=== PATIENT | male | born 1960 | race Caucasian/White ===

== ENCOUNTER → 2017-07-24 11:06 | Outpatient (CLI) | payer BC, SELFPAY ==
--- NOTE | 2017-07-24 | XR_ITS ---
XR lumbar spine min 4V COMPARISON: None HISTORY: Low back pain TECHNIQUE: AP lateral and oblique views and spot view lumbosacral junction FINDINGS: There is normal lordotic curvature of the lumbar spine. However there is very minor diffuse dextroscoliotic curvature of the lumbar spine. All lumbar vertebrae appear intact. There is minor disc space narrowing at L4-5 level. There is no pars defect. The SI joints are normal. IMPRESSION: Minor degenerative disease L4-5
== END ==
PROVIDERS: PCP Nurse Practitioner Family; Visit Provider Nurse Practitioner Family
DX: M54.41 Lumbago with sciatica, right side (principal)
CPT/HCPCS: 72110

== ENCOUNTER → 2017-07-26 11:09 | Outpatient (CLI) | payer BC, SELFPAY ==
--- NOTE | 2017-07-26 11:17 | XR_ITS ---
XR hip RT 2-3V w/pelvis COMPARISON: None HISTORY: Right hip pain TECHNIQUE: AP pelvis, cone-down AP and frog-leg views right hip FINDINGS: The iliac bones and pubic bones appear intact. The SI joints and symphysis pubis per normal. Both hips are normally articulated. There Is no significant degenerative change in either hip. There is normal range of motion right hip on the frog-leg view. The soft tissues about the hips are normal. IMPRESSION: Negative AP pelvis and right hip, left hip grossly negative as well
== END ==
PROVIDERS: PCP Nurse Practitioner Family; Visit Provider Nurse Practitioner Family
DX: M25.551 Pain in right hip (principal)
CPT/HCPCS: 73502

== ENCOUNTER → 2017-08-03 15:55 | Outpatient (CLI) | payer BC, SELFPAY ==
--- NOTE | 2017-08-03 16:18 | MR_ITS ---
MR lumbar spine wo con, MR 3-d myelogram/MRCP HISTORY: PT states low back pain since Mar. RT leg pain. No known. ITS.REASON: ACUTE RIGHT-SIDED LOW BACK PAIN W/SCIATICA ORDERING PHYSICIAN: Tiana Davila PATIENT AGE: 56 years COMPARISON: X-RAY 07/24/17 TECHNIQUE: Standard multiplanar multiecho sequences are performed without contrast. 3-D MIP and myelographic images are also rendered and reviewed FINDINGS: There is normal alignment. Spinal cord ends at the L1 level. L1-L2, L2-L3, and L3-L4 have an unremarkable appearance.. The bulging disc is very slightly eccentric toward the right. L4-L5: There is mild concentric bulging disc along with mild facet and ligamentum flavum hypertrophy with mild bilateral foraminal narrowing. L5-S1: Mild degenerative disc disease with mild bulging disc along with facet and ligamentum flavum hypertrophy with moderate bilateral foraminal narrowing slightly greater on the right. No canal stenosis or disc herniation evident. IMPRESSION: 1. Mild degenerative disc disease with mild bulging disc at L4-L5 and L5-S1 along with facet and ligamentum flavum hypertrophy. There is mild bilateral foraminal narrowing at L4-L5 and moderate foraminal narrowing at L5-S1 slightly greater on the right 2. No canal stenosis or disc herniation
== END ==
PROVIDERS: Family Provider Family Medicine; PCP Nurse Practitioner Family; Visit Provider Nurse Practitioner Family
DX: M54.41 Lumbago with sciatica, right side (principal)
CPT/HCPCS: 72148; 76376

== ENCOUNTER 2017-12-09 16:00 | Outpatient (RCR) | payer BC, SELFPAY | END 2017-12-09 16:01 | disposition home or self-care (01) | LOC: PT 16:00 | PROVIDERS: Family Provider Family Medicine; PCP Nurse Practitioner Family; Visit Provider Orthopaedic Surgery | DX: M54.31 Sciatica, right side (principal) | CPT/HCPCS: 97010; 97012; 97014; 97110; 97163; G0283 ==

== ENCOUNTER → 2018-03-24 13:34 | Outpatient (CLI) | payer BC, SELFPAY ==
--- NOTE | 2018-03-24 13:37 | XR_ITS ---
XR shoulder RT min 2V Ordering Physician: Vivek Ram MD Patient Age: 57 years: Male HISTORY: ITS.REASON: ROTATOR CUFF SYNDROME TECHNIQUE: 3 views right shoulder COMPARISON :March 26, 2015 chest film FINDINGS Right shoulder intact with no fracture nor dislocation. Glenohumeral joint is intact.. Scant unremarkable bones well mineralized. Upper right ribs and right lung apex satisfactory. AC joint:. Mild degenerative changes. IMPRESSION: Right shoulder intact with only minimal joint intact Only note . Mild degenerative changes AC joint
== END ==
PROVIDERS: PCP Family Medicine; Visit Provider Family Medicine
DX: M75.101 Unspecified rotator cuff tear or rupture of right shoulder, not specified as traumatic (principal)
CPT/HCPCS: 73030

== ENCOUNTER → 2019-01-03 15:51 | Outpatient (POV) | payer BC, SELFPAY | PROVIDERS: Visit Provider Dermatology | DX: Z00.00 Encounter for general adult medical examination without abnormal findings (principal) ==

== ENCOUNTER → 2019-12-05 15:45 | Outpatient (POV) | payer BC, SELFPAY | PROVIDERS: Visit Provider Dermatology | DX: Z00.00 Encounter for general adult medical examination without abnormal findings (principal) ==

== ENCOUNTER → 2022-12-11 15:30 | Outpatient (CLI) | payer BC, SELFPAY | PROVIDERS: PCP Internal Medicine; Visit Provider Internal Medicine | DX: R31.9 Hematuria, unspecified (principal) | CPT/HCPCS: 87086 ==

== ENCOUNTER → 2023-03-18 15:30 | Outpatient (CLI) | payer BC, SELFPAY ==
[2023-03-18 15:18] LABS: Microscopic, Urine URINE MICROSCOPIC (MICROSCOPIC)
[2023-03-18 15:34] LABS: Basophils % 0.3 % (0.1-2.0); Eosinophils # 0.2 K/mm3 (0.0-0.4); Eosinophils % 1.6 % (0.1-12.0); Hematocrit 49.4 % (42.0-52.0); Hemoglobin 16.5 g/dL (14.1-18.0); Lymphocytes # 1.3 K/mm3 (0.7-4.5); Lymphocytes % 12.9 % (10-50); Mean Corpuscular HGB Conc 33.4 g/dL (31.8-35.4); Mean Corpuscular Hemoglobin 29.2 pg (27.0-31.2); Mean Corpuscular Volume 87.4 fl (80-94); Monocytes # 0.7 K/mm3 (0.1-1.0); Monocytes % 6.7 % (1.7-9.3); Neutrophils % 78.4 % (37.0-80.0); Platelet Count 181 K/mm3 (142-424); Red Blood Count 5.65 M/mm3 (4.60-6.20); Red Cell Distribution Width 13.8 % (11.5-17.5); White Blood Count 10.3 K/mm3 (4.8-10.8)
[2023-03-18 16:14] LABS: Appearance,Urine CLEAR (Clear); Bilirubin,Urine Negative (Negative); Blood, Urine Negative (Negative); Color,Urine YELLOW (Yellow); Glucose,Urine (UA) Negative (Negative); Ketones,Urine Negative (Negative); Leukocyte Esterase,Urine Negative (Negative); Nitrate,Urine Negative (Negative); Protein,Urine Negative (Negative); Specific Gravity, Urine 1.015 (1.005-1.030); Urobilinogen,Urine 0.2 EU/dl (0.2)
[2023-03-18 16:34] LABS: Alanine Aminotransferase 24 U/L (12-78); Albumin/Globulin Ratio 1.5 (1.1-1.8); Alkaline Phosphatase 56 U/L (38-126); Aspartate Amino Transferase 26 U/L (17-59); Bilirubin,Total 0.7 mg/dl (0.2-1.3); Blood Urea Nitrogen 14 mg/dl (9-20); Calcium 8.6 mg/dl (8.4-10.2); Carbon Dioxide 27 mmol/L (22.0-30.0); Chloride 102 mmol/L (98-107); Estimated Glomerular Filt Rate 97 ml/min (>60); GFR (African American) 118 ML/MIN (>60); Globulin 2.7 g/dL (1.3-3.2); Glucose 89 mg/dl (74-100); Sodium 134 mmol/L (136-145); Total Protein,Serum 6.7 g/dl (6.3-8.2)
[2023-03-18 16:52] LABS: Bacteria,Urine Trace /lpf; WBC,Urine Occasional #/hpf (0-3)
[2023-03-18 17:04] LABS: Prostate Specific Ag Screen 0.2 ng/ml (0.0-4.0)
== END ==
LOC: LAB.DROPOF 15:31
PROVIDERS: PCP Internal Medicine; Visit Provider Internal Medicine
DX: N41.9 Inflammatory disease of prostate, unspecified (principal); Z79.899 Other long term (current) drug therapy; Z12.5 Encounter for screening for malignant neoplasm of prostate
CPT/HCPCS: 80053; 81001; 85025; 87086; G0103

== ENCOUNTER 2023-07-28 11:28 | Outpatient (CLI) | payer BC, SELFPAY | END 2023-07-28 23:59 | disposition home or self-care (01) | LOC: LAB.DROPOF 07-29 11:29 | PROVIDERS: PCP Nurse Practitioner Family; Visit Provider Nurse Practitioner Family | DX: J02.9 Acute pharyngitis, unspecified (principal); R05.9 Cough, unspecified; R09.89 Other specified symptoms and signs involving the circulatory and respiratory systems | CPT/HCPCS: 87070 ==

== ENCOUNTER 2024-02-18 12:58 | Outpatient (CLI) | payer MEDICARE, SELFPAY ==
[2024-02-18 12:35] LABS: Microscopic, Urine URINE MICROSCOPIC (MICROSCOPIC)
[2024-02-18 12:56] LABS: Basophils % 0.8 % (0.1-2.0); Eosinophils # 0.2 K/mm3 (0.0-0.4); Hematocrit 48.6 % (42.0-52.0); Hemoglobin 16.4 g/dL (14.1-18.0); Lymphocytes # 1.2 K/mm3 (0.7-4.5); Lymphocytes % 24.6 % (10-50); Mean Corpuscular HGB Conc 33.7 g/dL (31.8-35.4); Mean Corpuscular Hemoglobin 29.1 pg (27.0-31.2); Mean Corpuscular Volume 86.3 fl (80-94); Mean Platelet Volume 7.2 fl (7.4-10.4); Monocytes # 0.4 K/mm3 (0.1-1.0); Monocytes % 8.2 % (1.7-9.3); Neutrophils # 3.2 K/mm3 (1.8-7.8); Neutrophils % 63.4 % (37.0-80.0); Platelet Count 149 K/mm3 (142-424); Red Blood Count 5.63 M/mm3 (4.60-6.20); Red Cell Distribution Width 13.7 % (11.5-17.5)
[2024-02-18 13:27] LABS: Alanine Aminotransferase 23 U/L (12-78); Albumin Level 4.2 g/dl (3.5-5.0); Albumin/Globulin Ratio 1.6 (1.1-1.8); Alkaline Phosphatase 52 U/L (38-126); Anion Gap 9.3 mEq/L (5-15); Aspartate Amino Transferase 32 U/L (17-59); Bilirubin,Total 0.7 mg/dl (0.2-1.3); Blood Urea Nitrogen 18 mg/dl (9-20); Calcium 9.4 mg/dl (8.4-10.2); Carbon Dioxide 29 mmol/L (22.0-30.0); Chloride 106 mmol/L (98-107); Chol/HDL Ratio 3.4 (1-3.5); Cholesterol 138 mg/dl (140-200); Estimated Glomerular Filt Rate 113 ml/min (>60); GFR (African American) 137 ML/MIN (>60); Globulin 2.6 g/dL (1.3-3.2); Glucose 69 mg/dl (74-100); HDL Cholesterol 41 mg/dl (40-60); Potassium 4.3 mmoL/L (3.5-5.1); Sodium 140 mmol/L (136-145); Total Protein,Serum 6.8 g/dl (6.3-8.2); Triglycerides 187 mg/dl (30-150); VLDL Cholesterol 37 mg/dL (0-40)
[2024-02-18 13:37] LABS: Direct LDL Cholesterol 71.24 mg/dL (100-129)
[2024-02-18 13:57] LABS: Thyroid Stimulating Hormone 2.21 uIU/mL (0.465-4.68)
[2024-02-18 14:23] LABS: Appearance,Urine CLEAR (Clear); Bilirubin,Urine Negative (Negative); Blood, Urine Negative (Negative); Color,Urine YELLOW (Yellow); Glucose,Urine (UA) Negative (Negative); Ketones,Urine Negative (Negative); Leukocyte Esterase,Urine Negative (Negative); Nitrate,Urine Negative (Negative); Protein,Urine Negative (Negative); Specific Gravity, Urine <= 1.005 (1.005-1.030); Urobilinogen,Urine 0.2 EU/dl (0.2)
[2024-02-18 15:19] LABS: RBC,Urine Occasional #/hpf (0-3); Squamous Epithelial Cell,Urine Occasional #/hpf (0-5); WBC,Urine Occasional #/hpf (0-3)
[2024-02-18 16:21] LABS: HIV (1&2) Antibody Rapid NONREACTIVE (NONREACTIVE)
[2024-02-19 07:14] LABS: HCV Ab Non Reactive (Non Reactive)
== END 2024-02-18 23:59 | disposition home or self-care (01) ==
LOC: LAB.DROPOF 12:58
PROVIDERS: PCP Nurse Practitioner Family; Visit Provider Nurse Practitioner Family
DX: R30.0 Dysuria (principal); J02.9 Acute pharyngitis, unspecified; N41.9 Inflammatory disease of prostate, unspecified; Z11.59 Encounter for screening for other viral diseases; Z11.4 Encounter for screening for human immunodeficiency virus [HIV]; R35.0 Frequency of micturition; Z79.899 Other long term (current) drug therapy
CPT/HCPCS: 80053; 80061; 81001; 84443; 85025; 86803; 87086; 87389

== ENCOUNTER 2024-03-13 14:10 | Outpatient (CLI) | payer MEDICARE, SELFPAY ==
[2024-03-13 14:31] LABS: Chloride 106 mmol/L (98-107); Sodium 135 mmol/L (136-145)
[2024-03-13 14:34] LABS: Alanine Aminotransferase 28 U/L (12-78); Albumin/Globulin Ratio 1.7 (1.1-1.8); Alkaline Phosphatase 61 U/L (38-126); Aspartate Amino Transferase 34 U/L (17-59); Bilirubin,Total 0.5 mg/dl (0.2-1.3); Blood Urea Nitrogen 14 mg/dl (9-20); Calcium 9.2 mg/dl (8.4-10.2); Carbon Dioxide 28 mmol/L (22.0-30.0); Estimated Glomerular Filt Rate 113 ml/min (>60); GFR (African American) 137 ML/MIN (>60); Globulin 2.4 g/dL (1.3-3.2); Glucose 70 mg/dl (74-100); Magnesium 1.9 mg/dl (1.6-2.3); Total Protein,Serum 6.4 g/dl (6.3-8.2)
== END 2024-03-13 23:59 | disposition home or self-care (01) ==
LOC: LAB.DROPOF 14:10
PROVIDERS: PCP Nurse Practitioner Family; Visit Provider Nurse Practitioner Family
DX: I95.9 Hypotension, unspecified (principal)
CPT/HCPCS: 80053; 83735

== ENCOUNTER 2024-04-07 14:35 | Outpatient (CLI) | payer MEDICARE, SELFPAY ==
[2024-04-07 15:52] LABS: Prostate Specific Ag Screen 0.3 ng/ml (0.0-4.0)
== END 2024-04-07 23:59 | disposition home or self-care (01) ==
LOC: LAB.DROPOF 14:35
PROVIDERS: PCP Nurse Practitioner Family; Visit Provider Nurse Practitioner Family
DX: Z12.5 Encounter for screening for malignant neoplasm of prostate (principal)
CPT/HCPCS: G0103

== ENCOUNTER 2024-04-18 13:31 | Outpatient (CLI) | payer MEDICARE, SELFPAY ==
[2024-04-18 13:00] LABS: Coronavirus 19, PCR Not Detected (NotDetected); Human Rhinovirus Not Detected (NotDetected); Influenza A, PCR Not Detected (NotDetected); Influenza B, PCR Not Detected (NotDetected); Respiratory Syncytial Virus Not Detected (NotDetected)
== END 2024-04-18 23:59 | disposition home or self-care (01) ==
LOC: LAB.DROPOF 13:31
PROVIDERS: PCP Nurse Practitioner Family; Visit Provider Nurse Practitioner Family
DX: R06.02 Shortness of breath (principal); J20.9 Acute bronchitis, unspecified; R68.89 Other general symptoms and signs
CPT/HCPCS: 87631

== ENCOUNTER 2024-04-24 16:02 | Outpatient (CLI) | payer MEDICARE, SELFPAY | END 2024-04-24 23:59 | disposition home or self-care (01) | LOC: RT 16:03 | PROVIDERS: PCP Nurse Practitioner Family; Visit Provider Internal Medicine | DX: R55 Syncope and collapse (principal); Z82.49 Family history of ischemic heart disease and other diseases of the circulatory system; R94.31 Abnormal electrocardiogram [ECG] [EKG]; I48.91 Unspecified atrial fibrillation | CPT/HCPCS: 93270 ==

== ENCOUNTER 2024-05-10 07:16 | Outpatient (CLI) | payer MEDICARE, SELFPAY ==
--- NOTE | 2024-05-10 | CA_ITS ---
APPROVED REPORT Exam: Exercise Treadmill Technologist: Berta Saucedo Ht: 5 ft 11 in Wt: 192 lbs BSA: 2.07 m2 HR: 76 bpm BP: 107/74 mmHg Stress Test Details Test: Exercise stress testing was performed using a Glenroy protocol. HR Resting HR: 76 bpm Max Heart Rate (APMHR): 155 bpm Max HR Achieved: 156 bpm Target HR (85% APMHR): 132 bpm % of APMHR: 101 Recovery HR: 108 bpm HR response to stress: Normal HR response to stress BP Resting BP: 107.0/74.0 mmHg Max BP: 138.0/82.0 mmHg Recovery BP: 116.0/84.0 mmHg BP response to stress: Normal blood pressure response to stress. ECG Resting ECG: Atrial fibrillation, PVCs Stress EC.[address] depression Clinical Exercise duration: 4:25 min Exercise capacity: 7.1 METs Stress ECG Conclusion Symptoms: None Arrhythmias/Ectopy: Occasional PVCs ST-T Changes: 0.[address] depression Conclusion: Average exercise capacity. No evidence of ischemia at peak stress on ECG. Myoview images are reported separately. Electronically signed by : Corrine Wills MD 05/14/2024 00:19:29
--- NOTE | 2024-05-10 07:17 | NM_ITS ---
APPROVED REPORT Exam: Nuclear Stress Test Indication: fm hx, abn ekg Patient Location: Outpatient Stress Tech: Berta Saucedo MD Tech:Fartun Rice SUE RT (R)(N)(M) Ht: 5 ft 10 in Wt: 195 lbs HR: 90 bpm BP: 107/74 mmHg BSA: 2.07 m2 TID: 1.01 BMI: 27.9 History: fm hx, abn ekg Procedure: Patient exercised on Glenroy protocol 4:25 minutes and sec, resting heart rate 90 bpm, resting blood pressure 107/74 mmHg, with exercise maximum heart rate achived was 158 bpm which is 103 % of the maximum predicted heart rate and blood pressure was 138/82 mmHg. Test was stopped due to fatigue. Patient denied any complaint of chest pain. Patient has average exercise capacity, achieved 7.1 METs of workload on treadmill, the blood pressure response to exercise was normal. Cardiac Stress and Resting SPECT Images: Cardiac Stress and Resting SPECT images were obtained using technetium 99m Myoview 31.6 mCi stress and 10.30 mCi at rest. Resting and stress imaging in supine and prone positions demonstrate a large sized, moderate, predominantly fixed perfusion defect in the inferior, inferolateral, and lateral LV hensley. Gated imaging demonstrates mildly reduced LV systolic function. There is moderate hypokinesis of the inferior and basal lateral LV hensley. LVEF is calculated at 44%. Conclusion: Large sized, moderate, predominantly fixed perfusion defect in the inferior, inferolateral, and lateral LV hensley. Findings are suggestive of partial reversible ischemia. Gated imaging demonstrates mildly reduced LV systolic function. There is moderate hypokinesis of the inferior and basal lateral LV hensley. LVEF is calculated at 44%. Electronically signed by : Corrine Wills MD 05/14/2024 00:11:51
[2024-05-10] MEDS: SODIUM CHLORIDE 0.9% 10ML SYR (RAD ONLY) 10 ML IV ×2 (07:25→09:00)
--- NOTE | 2024-05-10 07:48 | CA_ITS ---
APPROVED REPORT EXAM: Comprehensive 2D, Doppler, and color-flow Echocardiogram Biomedical Engineering Internship: Yael Little RVT Ht: 5 ft 10 in Wt: 182lbs BSA: 2.01 BP: 129/87 mmHg Indications: A-FIB,EX SMOKER 2D Dimensions IVSd 1.08 cm M: 0.6-1.2 LVEF (Visual) 63.30 % PWd 1.29 cm M: 0.6 - 1.2 LA Volume 26.10 mL LVDd 3.47 cm M: 4.2 - 5.9 LA Volume Index 12.99 mL/m2 (M/F) 16-34 LVDs 2.31 cm M: 2.5 - 4.0 M-Mode Dimensions LA Diam 4.62 cm (1.9-4.0) TAPSE 1.61 (<1.7) LV Diastology E Decel Time 200 (160-240 msec) E/A Ratio 4.1 Aortic Valve NANO Index 1.24 cm2/m2 AoV Peak Titi. 124.0 (50-130 cm/s) AO Peak GR. 6.20 mmHg AO Mean GR. 3.90 (<5 mmHg) AO VTI 25.8 (18-25 cm) NANO (VTI) 2.54 (2.5-4.5 cm2) Mitral Valve MV E Max Titi. 107.0 (40-130 cm/s) MV A Velocity 26.0 (40-130 cm/s) E/A Ratio 4.12 MV PHT 59.0 ms Pulmonary Valve PV Peak Velocity 58.0 (50-150 cm/s) Tricuspid Valve TR P. Velocity 274.00 cm/s RAP Estimate 10.00 mmHg RVSP 40.00 mmHg Left Ventricle The left ventricle is normal size. The left ventricular systolic function is normal. The left ventricular ejection fraction is within the normal range. There is increased LV wall thickness. There is normal LV segmental wall motion. Diastolic function is indeterminate. LVEF is 55%. Right Ventricle Right ventricle is mildly dilated. The right ventricular systolic function is normal. Atria Left atrium is mildly dilated. Right atrium is mildly dilated. There is no Doppler evidence of interatrial shunt. Aortic Valve The aortic valve is mildly thickened. There is no aortic valvular stenosis. No aortic regurgitation is present. Mitral Valve The mitral valve is normal in structure. No evidence of mitral valve stenosis. Trace mitral regurgitation. Tricuspid Valve Tricuspid valve is grossly normal in structure and function. Trace tricuspid regurgitation. There is insufficient TR jet to estimate RVSP. Pulmonic Valve The pulmonary valve is normal in structure. Trace pulmonic regurgitation. Great Vessels The aortic root is normal in size. IVC is normal in size and collapses >50% with inspiration. Pericardium There is no pericardial effusion. Other Information Study Quality: Fair Conclusion Normal biventricular systolic function. Mild RV dilation. Mild biatrial dilation. No significant valvular stenosis or regurgitation. Electronically signed by : Corrine Wills MD 05/15/2024 01:02:00
[2024-05-10] MEDS: ISOTOPE MYOVIEW (PER STUDY) 1 DOSE IV (09:54)
== END 2024-05-10 23:59 | disposition home or self-care (01) ==
LOC: RAD 07:17
PROVIDERS: PCP Nurse Practitioner Family; Visit Provider Internal Medicine
DX: R94.31 Abnormal electrocardiogram [ECG] [EKG] (principal); R55 Syncope and collapse; Z82.49 Family history of ischemic heart disease and other diseases of the circulatory system; I48.91 Unspecified atrial fibrillation
CPT/HCPCS: 78452; 93017; 93018; 93306; A9502

== ENCOUNTER 2024-08-08 08:45 | Day surgery (SDC) | payer MEDICARE, SELFPAY ==
[2024-08-08] VITALS (12 sets, daily range): BP systolic 93–144; BP diastolic 47–109; PULSE 38–86; RESP 16–20; TEMP 37.1; O2SAT 90–99; BMI 28.8
--- NOTE | 2024-08-08 07:00 | IR_ITS ---
APPROVED REPORT Patient Location: Outpatient PROCEDURES Left heart catheterization Left ventriculogram Selective coronary angiogram INDICATION Abnormal Myoview Informed consent was obtained prior to the procedure. COMPLICATIONS NONE Estimated Blood Loss: LESS THAN 10 ML TECHNIQUE One percent lidocaine used to anesthetize the right anterior aspect of the wrist. The right radial artery was accessed via the Seldinger technique. A 6 Slovenian sheath was placed in the right radial artery. 2.5 mg of Verapamil, 800 mcg of nitroglycerin, 1mg Lidocaine and 5000 U Heparin were given through the arterial sheath. The JL3 catheter was also used to perform left heart catheterization, left ventriculogram and selective coronary angiogram. At the end of the procedure the sheath was removed good hemostasis was achieved using Traclet band, patient was transferred to the postop holding area in stable condition. ANGIOGRAPHIC RESULTS The left main artery Normal The left anterior descending artery Normal The circumflex artery Normal The right coronary artery Normal The JORDAN ventriculogram reveals Reduced 45% The left ventricular end-diastolic pressure Elevated at 25 mmHg IMPRESSION Normal coronary arteries Reduced ejection fraction with elevated LVEDP PLAN 1. GDMT 2. Consider cardiac MRI Electronically signed by : Mitch Velasco MD 08/08/2024 12:49:45
[2024-08-08 09:57] LABS: Basophils % 0.8 % (0.1-2.0); Eosinophils # 0.1 Kmm3 (0.0-0.4); Eosinophils % 2.8 % (0.1-12.0); Hematocrit 49.9 % (42.0-52.0); Hemoglobin 16.3 g/dL (14.1-18.0); Immature Granulocytes # 0.01 10^3uL; Immature Granulocytes % 0.2 %; Lymphocytes # 1.3 K/mm3 (0.7-4.5); Lymphocytes % 25.2 % (10-50); Mean Corpuscular HGB Conc 32.7 g/dL (31.8-35.4); Mean Corpuscular Hemoglobin 28.3 pg (27.0-31.2); Mean Corpuscular Volume 86.6 fl (80-94); Mean Platelet Volume 9.3 fl (7.4-10.4); Monocytes # 0.4 K/mm3 (0.1-1.0); Monocytes % 7.8 % (1.7-9.3); Neutrophils # 3.2 K/mm3 (1.8-7.8); Neutrophils % 63.2 % (37.0-80.0); Nucleated Red Blood Cells # 0 10^3/uL; Nucleated Red Blood Cells % 0 %; Platelet Count 156 K/mm3 (142-424); Red Blood Count 5.76 M/mm3 (4.60-6.20); Red Cell Distribution Width-SD 40.7 fL
[2024-08-08 10:11] LABS: Chloride 108 mmol/L (98-107); Potassium 4.2 mmoL/L (3.5-5.1); Sodium 139 mmol/L (136-145)
[2024-08-08 10:14] LABS: Anion Gap 9.2 mEq/L (5-15); Blood Urea Nitrogen 13 mg/dl (9-20); Carbon Dioxide 26 mmol/L (22.0-30.0); Creatinine Clearance Estimated 95 mL/min (50-200); Estimated Glomerular Filt Rate 113 ml/min (>60); GFR (African American) 137 ML/MIN (>60)
[2024-08-08 10:15] LABS: Calcium 9.1 mg/dl (8.4-10.2); Glucose 108 mg/dl (74-100)
[2024-08-08] MEDS: VERAPAMIL 2.5MG/ML 2ML VIAL 2.5 MG IV (12:23)
[2024-08-08] MEDS: HEPARIN 1,000 UNITS/ML 10ML VIAL (CATH LAB) 5000 UNIT IV (12:23)
[2024-08-08] MEDS: diphenhydrAMINE 50MG/ML VIAL 50 MG IV (12:24)
[2024-08-08] MEDS: HEPARIN 1,000 UNITS/500ML NS (CATH LAB) 3000 UNIT IV (12:24)
[2024-08-08] MEDS: NITROGLYCERIN 800MCG/8ML SYR (CATH LAB) 800 MCG IA (12:24)
[2024-08-08] MEDS: LIDOCAINE 1% 10ML MDV 10 ML IJ (12:24)
[2024-08-08] MEDS: 0.9 % SODIUM CHLORIDE 500 ML 25 ML IV (12:24)
[2024-08-08] MEDS: MIDAZOLAM HCL 1MG/ML 5ML VIAL 1 MG IV (12:47)
[2024-08-08] MEDS: FENTANYL 100MCG/2ML VIAL 50 MCG IV (12:47)
[2024-08-08] MEDS: IOPAMIDOL-370 (76%);100ML BOTTLE 50 ML IV (14:33)
== END 2024-08-08 15:24 | disposition home or self-care (01) ==
LOC: CATHLAB 08:46
PROVIDERS: PCP Nurse Practitioner Family; Visit Provider Internal Medicine
PROC: 4A023N7 Measurement of Cardiac Sampling and Pressure, Left Heart, Percutaneous Approach (ICD-10-PCS; CPT 93452; principal; 2024-08-08 09:30)
DX: I48.0 Paroxysmal atrial fibrillation (principal); R93.1 Abnormal findings on diagnostic imaging of heart and coronary circulation; R94.39 Abnormal result of other cardiovascular function study; Z87.891 Personal history of nicotine dependence; Z88.8 Allergy status to other drugs, medicaments and biological substances; Z79.899 Other long term (current) drug therapy; Z82.49 Family history of ischemic heart disease and other diseases of the circulatory system
CPT/HCPCS: 80048; 85025; 93458; 99152; C1725; C1769; J1200; J1644; J3010; Q9967

== ENCOUNTER 2024-08-25 10:01 | Outpatient (CLI) | payer MEDICARE, SELFPAY | END 2024-08-25 23:59 | disposition home or self-care (01) | LOC: LAB.DROPOF 08-28 10:01 | PROVIDERS: PCP Nurse Practitioner Family; Visit Provider Nurse Practitioner Family | DX: N39.0 Urinary tract infection, site not specified (principal) | CPT/HCPCS: 87086 ==

== ENCOUNTER 2025-02-15 09:44 | Outpatient (CLI) | payer MEDICARE, SELFPAY ==
--- NOTE | 2025-02-15 09:47 | XR_ITS ---
FINAL REPORT TECHNIQUE: Chest PA & Lateral CLINICAL HISTORY: Nonspecific cough COMPARISON: None FINDINGS: 2 views of the chest were performed. There are calcified left hilar lymph nodes. The heart size is normal. The mediastinum is within normal limits. There is no acute cardiopulmonary process. There are no pleural effusions. There is no pneumothorax. IMPRESSION: No acute cardiopulmonary process. Reviewed, Interpreted and Dictated by Milad Snowden MD Transcribed by Lanie Knapp Authenticated and [facility]
[2025-02-15 10:32] LABS: Hematocrit 46.5 % (42.0-52.0); Hemoglobin 14.9 g/dL (14.1-18.0); Immature Granulocytes % 0.4 %; Mean Corpuscular HGB Conc 32.0 g/dL (31.8-35.4); Mean Corpuscular Hemoglobin 28.1 pg (27.0-31.2); Mean Corpuscular Volume 87.7 fl (80-94); Nucleated Red Blood Cells % 0 %; Platelet Count 156 K/mm3 (142-424); Red Blood Count 5.30 M/mm3 (4.60-6.20); Red Cell Distribution Width-SD 42.6 fL; White Blood Count 4.9 K/mm3 (4.8-10.8)
[2025-02-15 10:54] LABS: Alanine Aminotransferase 21 U/L (12-78); Albumin Level 4.1 g/dl (3.5-5.0); Alkaline Phosphatase 62 U/L (38-126); Anion Gap 8.0 mEq/L (5-15); Aspartate Amino Transferase 29 U/L (17-59); Bilirubin,Direct 0.0 mg/dl (0.0-0.4); Bilirubin,Indirect 0.6 mg/dL (0.0-0.9); Bilirubin,Total 0.6 mg/dl (0.2-1.3); Bilirubin,Unconjugated 0.5 mg/dL (0.0-1.1); Blood Urea Nitrogen 15 mg/dl (9-20); Calcium 9.4 mg/dl (8.4-10.2); Carbon Dioxide 28 mmol/L (22.0-30.0); Chloride 105 mmol/L (98-107); Cholesterol 143 mg/dl (140-200); Creatinine,Serum 0.70 mg/dl (0.66-1.25); Estimated Glomerular Filt Rate 113 ml/min (>60); GFR (African American) 137 ML/MIN (>60); Glucose 84 mg/dl (74-100); HDL Cholesterol 41 mg/dl (40-60); Magnesium 1.9 mg/dl (1.6-2.3); Potassium 4.0 mmoL/L (3.5-5.1); Sodium 137 mmol/L (136-145); Total Protein,Serum 6.7 g/dl (6.3-8.2); Triglycerides 271 mg/dl (30-150)
[2025-02-15 11:09] LABS: Free T4 (Free Thyroxine) 0.78 ng/dl (0.78-2.19)
[2025-02-15 11:23] LABS: Thyroid Stimulating Hormone 1.76 uIU/mL (0.465-4.68)
== END 2025-02-15 23:59 | disposition home or self-care (01) ==
LOC: LAB 09:45
PROVIDERS: PCP Nurse Practitioner Family; Visit Provider Physician Assistant
DX: R05.1 Acute cough (principal); R55 Syncope and collapse; I48.0 Paroxysmal atrial fibrillation; Z13.6 Encounter for screening for cardiovascular disorders; E78.5 Hyperlipidemia, unspecified
CPT/HCPCS: 36415; 71046; 80048; 80061; 80076; 83735; 84439; 84443; 85025; 93270

== ENCOUNTER 2025-02-20 07:50 | Outpatient (CLI) | payer MEDICARE, SELFPAY ==
--- OUTSIDE RECORDS SUMMARY | 2025-02-20 07:53 | XMS_ITS ---
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 Name Role Phone Giovanni Estephania Unavailable [phone] MARINA GAINES Primary Care Provider [phone] Law UA, Adan Guillaume Unavailable [phone] Problems Includes: Active, inactive, and resolved Problems All Visits Onset Date Resolved Date Provider Condition S tatus Lower Back Pain 11/11/2017 Adan Foy MD Act martine Last Documented On 8 10:43AM ; [facility], [facility] Plan of Treatment Instructions to patient Lose weight Last Documented On 4 8:43AM ; [facility], [facility] Lose weight Last Documented On 3 1:39PM ; [facility] Lose weight Last Documented On 3 10:04AM ; [facility], [facility] Instructions for patient Pat ient to see PCP for BP Last Documented On 8 10:32AM ; [facility] Instructions for patient Pat ient to see PCP for BP Last Documented On 8 10:45AM ; [facility], [facility] Assessments Includes: Assessments for all patient encounters Findings Encounter Date Overweight Follow Up with Aditya Hinds 04/02/2023 Last Documented On 4 8:50AM ; [facility] Overweight Follow Up with Aditya Hinds 02/09/2023 Last Documented On 3 1:34PM ; [facility] Overweight Physician Specified with Stiven Will MD 10/14/2022 Last Documented On 3 6:14PM ; [facility], [facility] Instructions Includes: Instructions for all patient encounters Instructions to patient Lose weight Last Documented On 4 8:43AM ; [facility], [facility] Lose weight Last Documented On 3 1:39PM ; [facility], [facility] Lose weight Last Documented On 3 10:04AM ; [facility], [facility] Instructions for patient Pat ient to see PCP for BP Last Documented On 8 10:32AM ; [facility], [facility] Instructions for patient Pat ient to see PCP for BP Last Documented On 8 10:45AM ; [facility], [facility] Medical Equipment - Implanted Devices Includes: Current and historical Devices No Medical Equipment Recorded Medications Includes: Current and historical Medications Current Medications (continue as prescribed) Doxazosin Mesylate 8 MG Oral Tablet 01/15/2023 Provi mckinley: MARINA GAINES Diagnosis: Last Documented On 3 1:38PM By Michaela Guerra ; [facility], [facility] Montelukast Sodium 10 MG Oral Tablet 01/15/2023 Prov ider: MARINA GAINES Diagnosis: Last Documented On 3 1:38PM By Michaela Guerra ; [facility], [facility] Finasteride 5 MG Oral Tablet 01/13/2023 Provider: MARINA GAINES Diagnosis: Last Documented On 3 1:38PM By Michaela Guerra ; [facility], [facility] Meloxicam 15 MG Oral Tablet 10/11/2022 Provider: MARINA GAINES Diagnosis: Last Documented On 3 1:38PM By Michaela Guerra ; [facility], [facility] Past Medications on file Finasteride 5 MG Oral Tablet 12/21/2019 - 02/09/2023 Jonathan zavala: Diagnosis: Last Documented On 3 1:38PM By Michaela Guerra ; [facility], [facility] Doxazosin Mesylate 8 MG Oral Tablet 12/21/2019 - 02/09 Provider: Diagnosis: Last Documented On 3 1:38PM By Michaela Guerra ; [facility] Aspirin Adult Low Dose 81 MG Oral Tablet Delayed Release 12/21/2019 - 02/09/2023 Provider: Diagnosis: Last Documented On 3 1:37PM By Michaela Guerra ; [facility] Meloxicam 15 MG Oral Tablet 12/21/2019 - 02/09/2023 Pr ovider: Diagnosis: Last Documented On 3 1:38PM By Michaela Guerra ; [facility] Montelukast Sodium Powder 12/21/2019 - 02/09/2023 Prov ider: Diagnosis: Last Documented On 3 1:38PM By Michaela Guerra ; [facility] tiZANidine HCl 4 MG Oral Capsule 12/21/2019 - 02/10/20 Provider: Diagnosis: Last Documented On 3 1:38PM By Michaela Guerra ; [facility] traMADol HCl 50 MG Oral Tablet 12/21/2019 - 02/09/2023 Provider: Diagnosis: Last Documented On 3 1:38PM By Michaela Guerra ; [facility] TiZANidine HCl 4MG Oral Capsule 11/11/2017 - 0 Provider: Diagnosis: Last Documented On 0 12:59PM By Angela Sepulveda ; [facility] Meloxicam 15MG Oral Tablet 11/11/2017 - 12/21/2019 Pro vider: Diagnosis: Last Documented On 0 12:59PM By Angela Sepulveda ; [facility] TraMADol HCl 50MG Oral Tablet 11/11/2017 - 12/21/2019 Provider: Diagnosis: Last Documented On 0 12:59PM By Angela Sepulveda ; [facility] Montelukast Sodium Powder 11/11/2017 - 12/21/2019 Prov ider: Diagnosis: Last Documented On 0 12:59PM By Angela Sepulveda ; [facility] Finasteride 5MG Oral Tablet 11/11/2017 - 12/21/2019 Pr ovider: Diagnosis: Last Documented On 0 12:59PM By Angela Sepulveda ; [facility], [facility] Doxazosin Mesylate 8MG Oral Tablet 11/11/2017 - 2019 Provider: Diagnosis: Last Documented On 0 12:59PM By Angela Sepulveda ; [facility] Aspirin Adult Low Dose 81MG Oral Tablet Delayed Release 11/11/2017 - 12/21/2019 Provider: Diagnosis: Last Documented On 0 12:59PM By Angela Sepulveda ; [facility] Medications Administered Includes: Administered Medications in patient's chart No Administered Medications Recorded Results Includes: Results from 02/21/2024 through 02/20/2025 No Results Recorded For Specified Dates History of Present Illness History of Present Illness not supported for this document type No History of Present Illness Recorded Social History Description Last Updated Non-smoker 02/09/2023 Last Documented On 3 1:34PM ; [facility] Tobacco non-user 10/14/2022 Last Documented On 3 6:14PM ; [facility] Smoking status : Never smoker 11/11/2017 Last Documented On 8 2:13PM ; [facility] No caffeine use 11/11/2017 Last Documented On 8 2:13PM ; [facility] No recent change in diet 11/11/2017 Last Documented On 8 2:13PM ; [facility], [facility] Not a current smoker 11/11/2017 Last Documented On 8 2:13PM ; [facility], [facility] Not exercising regularly 11/11/2017 Last Documented On 8 2:13PM ; [facility] Not using alcohol 11/11/2017 Last Documented On 8 2:13PM ; [facility] Not using drugs 11/11/2017 Last Documented On 8 2:13PM ; [facility] Medical History Includes: Medical History in patient's chart No Medical History Recorded Family History Includes: Family History in patient's chart Description Last Updated Paternal history of family history of he art disease 11/11/2017 Last Documented On 8 2:13PM ; [facility] Review of Systems Review of Systems not supported for this document type No Review of Systems Recorded Mental Status Description No anxiety Functional Status No Functional Status Recorded Physical Exam Physical Exam not supported for this document type No Physical Exam Recorded Allergies Includes: Active, inactive, and resolved Allergies No Known Allergies Insurance Includes: Active Insurance Policies Plan Name Member ID Group # Subscriber Relationship Effect martine Dates 1 - [facility] [id number] Wali Nieves Self 09/27/2020 - Unknown Clinical Notes Includes: Signed Clinical Notes starting from 03/12/2022 No Clinical Notes Recorded
--- OUTSIDE RECORDS SUMMARY | 2025-02-20 07:53 | XMS_ITS | Clinical Summary ---
Author Organization [facility] , [facility] Address [address] [place] [address] Phone Care Team Providers Care Tin Roller [employer] Name Role Phone Estephania Davila Unavailable [phone] MARINA DAVILA Primary Care Provider [phone] Law AU, Adan Guillaume Unavailable [phone] Reason for Visit and Chief Complaint The Chief Complaint is: Right shoulder capsuitis Bursitis Problems Includes: Problems addressed during this encounter and other active Problems Current Visit Onset Date Resolved Date Provider Pebbles bella Status Lower Back Pain 11/11/2017 Adan Foy MD Act martine Last Documented On 8 10:43AM ; [facility] Plan of Treatment I had a long talk with Wali about his shoulder. 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 On exam the patient has no appreciable deficits. There are no positive provocative maneuvers patient has excellent range of motion and 5/5 strength. I explained to him that on his MRI there are a myriad of different findings that are largely nonspecific and age-related and degenerative in nature. The patient has some increased fluid signal around the biceps tendon but no symptoms on exam. He has mild subacromial bursitis but no significant discomfort on exam especially with impingement maneuvers. There is evidence of capsulitis on his MRI but he has full range of motion that is not particularly uncomfortable. The patient did not complain of any pain during the exam. The patient also has evidence of degenerative superior labral tear which I explained is very common in his age group and as the other findings, the patient is currently asymptomatic. He does have some activity related discomfort in the shoulder that does not particularly bother him to an extreme degree, I recommended some meloxicam which we provided a prescription today and a referral to physical therapy to work on strengthening the muscles of his of his rotator cuff in order to optimize his function. I will see the patient back in approximately 6 to 8 weeks for repeat clinical check. He knows to call back sooner if his condition worsens. - Last Documented On 10/14/2022 6:14PM ; [facility], [facility] Pending Tests Order Diagnosis Results Due Ordering P lucas Therapy - Physical Therapy Shoulder Overweight 10/14/22 Stiven Will MD Last Documented On 3 6:14PM ; [facility], [facility] Instructions to patient Lose weight Last Documented On 3 10:04AM ; [facility], [facility] Assessments Includes: Assessments from this encounter Findings - Overweight - Last Documented On 10/14/2022 6:14PM ; [facility], [facility] Instructions Includes: Instructions from this encounter Instructions to patient Lose weight Last Documented On 3 10:04AM ; [facility], [facility] Medical Equipment - Implanted Devices Includes: Current Devices No Medical Equipment Recorded Medications Includes: Medications discussed during this encounter and other current Medications Current Medications (continue as prescribed) Doxazosin Mesylate 8 MG Oral Tablet 01/15/2023 Provi mckinley: MARINA DAVILA Diagnosis: Last Documented On 3 1:38PM By Michaela Guerra ; [facility], [facility] Montelukast Sodium 10 MG Oral Tablet 01/15/2023 Prov ider: MARINA DAVILA Diagnosis: Last Documented On 3 1:38PM By Michaela Guerra ; [facility], [facility] Finasteride 5 MG Oral Tablet 01/13/2023 Provider: MARINA DAVILA Diagnosis: Last Documented On 3 1:38PM By Michaela Guerra ; [facility], [facility] Meloxicam 15 MG Oral Tablet 10/11/2022 Provider: MARINA DAVILA Diagnosis: Last Documented On 3 1:38PM By Michaela Guerra ; [facility], [facility] Medications Administered Includes: Administered Medications from this encounter No Administered Medications Recorded Vital Signs Includes: Vital Signs from this encounter Vital Name 10/14/2022 10:05A Height (in) 70 Weight (lb) 225 Body Mass Index 32.3 Body Surface Area 2.2 Note: bb Last Documented: On 10/14/2022 10:05A M ; [facility], [facility] Results Includes: Results discussed during this encounter No Results Recorded For Specified Dates History of Present Illness Includes: History of Present Illness from this encounter MARILIA Nieves is a 62 year old male. - Allergy list reviewed - Problem list reviewed - Medication list reviewed - Previous history of new onset pain Injury is not work related or an automotive accident - Patient pain level from 1-10: 1 - No previous treatment. 62-year-old male with right shoulder pain that was recently exacerbated while performing some home maintenance. He did not have a specific injury. He notes that he has modified his activities over the last few weeks since the time of his MRI and his symptoms have decreased. Social History Description Last Updated Tobacco non-user 10/14/2022 Last Documented On 3 6:14PM ; [facility], [facility] Smoking status : Never smoker 11/11/2017 Last Documented On 3 9:53AM ; [facility], [facility] No caffeine use 11/11/2017 Last Documented On 3 9:53AM ; [facility], [facility] No recent change in diet 11/11/2017 Last Documented On 3 9:53AM ; [facility], [facility] Not a current smoker 11/11/2017 Last Documented On 3 9:53AM ; [facility], [facility] Not exercising regularly 11/11/2017 Last Documented On 3 9:53AM ; [facility], [facility] Not using alcohol 11/11/2017 Last Documented On 3 9:53AM ; [facility], [facility] Not using drugs 11/11/2017 Last Documented On 3 9:53AM ; [facility], [facility] Procedures and Surgical History Includes: Procedures from this encounter Procedures Code Diagnosis Performing Provider Service L ocation Service Date use of tobacco assessment performed 1000F Last Documented On 3 10:04AM ; [facility], [facility] review of medications documented 1160F Last Documented On 3 10:04AM ; [facility] an X-ray was performed [address]82 Last Documented On 3 10:04AM ; [facility] Medical History Includes: Medical History addressed during this encounter No Medical History Recorded Family History Includes: Family History addressed during this encounter Description Last Updated Paternal history of family history of he art disease 11/11/2017 Last Documented On 3 9:53AM ; [facility] Review of Systems Includes: Review of Systems from this encounter Systemic: Not feeling tired, no recent weight loss, and no recent weight gain. No edema. Head: No headache and no sinus pain. Eyes: No vision problems and no glaucomatous visual field defect. Otolaryngeal: No hearing loss and no tinnitus. No nasal symptoms. Cardiovascular: No chest pain or discomfort and no palpitations. Pulmonary: No daytime asthma symptoms, no cough, and no chronic cough. No wheezing. Gastrointestinal: No heartburn and no abdominal pain. Endocrine: No hot flashes and no muscle weakness. Hematologic: No easy bleeding and no tendency for easy bruising. Musculoskeletal: Lower back pain. No soft tissue swelling and no localized joint pain. Neurological: No dizziness, no convulsions, and no numbness. Psychological: No anxiety, no emotional lability, no depression, and no insomnia. Not crying for no reason. Skin: No dry skin, no rash, and no ulcers. Allergic and Immunologic: No complaint of seasonal allergic reaction. Reviewed on 10-14-2022 Mental Status Includes: Mental Status from this encounter Description No anxiety Functional Status Includes: Functional Status from this encounter No Functional Status Recorded Physical Exam Includes: Physical Exam from this encounter Allergies Includes: Active Allergies No Known Allergies Encounters Encounter Provider Location Date Check-In Time Check-Out Time Diagnosis Physician Specified Stiven Will MD [facility] 10/15/19 23 9:48AM 10:40AM Overweight Insurance Includes: Active Insurance Policies Plan Name Member ID Group # Subscriber Relationship Effect martine Dates 1 - [facility] [id number] Wali Nieves Self 09/27/2020 - Unknown Clinical Notes Includes: Clinical Notes from this encounter * Progress note Date Encounter Last Documented by 10/14/2022 Physician Specified Last andre schuster on 10/14/2022; 6:14 PM, Stiven Will MD; [facility], [facility] Active Problems & Conditions - Lower Back Pain Chief Complaint The Chief Complaint is: Right shoulder capsuitis Bursitis. Referred Here Referred by. History of Present Illness Wali Nieves is a 62 year old male. - Allergy list reviewed - Problem list reviewed - Medication list reviewed - Previous history of new onset pain Injury is not work related or an automotive accident - Patient pain level from 1-10: 1 - No previous treatment. 62-year-old male with right shoulder pain that was recently exacerbated while performing some home maintenance. He did not have a specific injury. He notes that he has modified his activities over the last few weeks since the time of his MRI and his symptoms have decreased. Current Medication - Aspirin Adult Low Dose 81 MG Oral Tablet Delayed Release once a day 0 days, 0 refills - Doxazosin Mesylate 8 MG Oral Tablet once a day 0 days, 0 refills - Finasteride 5 MG Oral Tablet once a day 0 days, 0 refills - Meloxicam 15 MG Oral Tablet use as directed 0 days, 0 refills - Montelukast Sodium Powder once a day 0 days, 0 refills - tiZANidine HCl 4 MG Oral Capsule once a day 0 days, 0 refills - traMADol HCl 50 MG Oral Tablet as needed 0 days, 0 refills Social History Current diet: No recent change in diet. Caffeine use: No caffeine use. Tobacco use: Not a current smoker. Tobacco non-user. Smoking status: Never smoker. Alcohol: Not using alcohol. Drug Use: Not using drugs. Habits: Not exercising regularly. Allergies - No Known Allergies Family History Paternal: Heart disease Review Of Systems Systemic: Not feeling tired, no recent weight loss, and no recent weight gain. No edema. Head: No headache and no sinus pain. Eyes: No vision problems and no glaucomatous visual field defect. Otolaryngeal: No hearing loss and no tinnitus. No nasal symptoms. Cardiovascular: No chest pain or discomfort and no palpitations. Pulmonary: No daytime asthma symptoms, no cough, and no chronic cough. No wheezing. Gastrointestinal: No heartburn and no abdominal pain. Endocrine: No hot flashes and no muscle weakness. Hematologic: No easy bleeding and no tendency for easy bruising. Musculoskeletal: Lower back pain. No soft tissue swelling and no localized joint pain. Neurological: No dizziness, no convulsions, and no numbness. Psychological: No anxiety, no emotional lability, no depression, and no insomnia. Not crying for no reason. Skin: No dry skin, no rash, and no ulcers. Allergic and Immunologic: No complaint of seasonal allergic reaction. Reviewed on 10-14-2022 Physical Findings - Vitals taken 10/14/2022 10:05 am bb Height 70 in Weight 225 lbs Body Mass Index 32.3 kg/m2 Body Surface Area 2.2 m2 Right SHOULDER Range of Motion: Abduction 160 degrees Forward flexion 180 degrees External rotation with arm at side 70 degrees Internal rotation to level of L1 Passive Range of Motion: Not limited Stability: no anterior, no posterior, no inferior laxity Strength: Abduction/Forward flexion [5/5], Internal rotation [5/5], External rotation [5/5]. Impingement sign negative Cross Arm test negative Zacarias's negative Speeds negative There is not pain at the lateral acromion/subacromial space. AC joint is not tender. Bicipital Groove is not tender. Tests 4 view x-rays of the patient's right shoulder demonstrate no acute osseous abnormalities, no significant glenohumeral arthritis. Assessment - Overweight Previous Tests Imaging: X-Ray: An X-ray was performed. MRI was personally reviewed, no full-thickness or high-grade rotator cuff tear. There is mild fluid signal around the biceps tendon. There is increased signal of the capsule and subacromial bursa. There is increased signal at the superior labrum. Counseling/Education - Lose weight Plan StartCited - Overweight Therapy/Physical Therapy: Shoulder Instructions: See PT order attached EndCited I had a long talk with Wali about his shoulder. 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 On exam the patient has no appreciable deficits. There are no positive provocative maneuvers patient has excellent range of motion and 5/5 strength. I explained to him that on his MRI there are a myriad of different findings that are largely nonspecific and age-related and degenerative in nature. The patient has some increased fluid signal around the biceps tendon but no symptoms on exam. He has mild subacromial bursitis but no significant discomfort on exam especially with impingement maneuvers. There is evidence of capsulitis on his MRI but he has full range of motion that is not particularly uncomfortable. The patient did not complain of any pain during the exam. The patient also has evidence of degenerative superior labral tear which I explained is very common in his age group and as the other findings, the patient is currently asymptomatic. He does have some activity related discomfort in the shoulder that does not particularly bother him to an extreme degree, I recommended some meloxicam which we provided a prescription today and a referral to physical therapy to work on strengthening the muscles of his of his rotator cuff in order to optimize his function. I will see the patient back in approximately 6 to 8 weeks for repeat clinical check. He knows to call back sooner if his condition worsens. Notes This dictation was done with voice recognition software and may contain errors and omissions. Practice Management Use of tobacco assessment performed Review of medications documented. Care Team - Estephania Davila
--- OUTSIDE RECORDS SUMMARY | 2025-02-20 07:53 | XMS_ITS | Clinical Summary ---
Author Organization [facility] , [facility] Address [address] [place] [address] Phone Care Team Providers Care Mat Puncher Name Role Phone GiovanniMatheusEstephania Unavailable [phone] MARINA GAINES Primary Care Provider [phone] Law AU, Adan Guillaume Unavailable [phone] Reason for Visit and Chief Complaint Epidural Steroid Injection Problems Includes: Problems addressed during this encounter and other active Problems All Visits Onset Date Resolved Date Provider Condition S tatus Lower Back Pain 11/11/2017 Adan Foy MD Act martine Last Documented On 8 10:43AM ; [facility], [facility] Plan of Treatment No Plan of Treatment Recorded Assessments Includes: Assessments from this encounter No Assessments Recorded Medical Equipment - Implanted Devices Includes: Current Devices No Medical Equipment Recorded Medications Includes: Medications discussed during this encounter and other current Medications Current Medications (continue as prescribed) Doxazosin Mesylate 8 MG Oral Tablet 01/15/2023 Provi mckinley: MARINA GAINES Diagnosis: Last Documented On 3 1:38PM By Michaela Guerra ; [facility], [facility] Montelukast Sodium 10 MG Oral Tablet 01/15/2023 Prov ider: MARINA GAINES Diagnosis: Last Documented On 3 1:38PM By Michaela Guerra ; [facility], [facility] Finasteride 5 MG Oral Tablet 01/13/2023 Provider: MARINA GAINES Diagnosis: Last Documented On 3 1:38PM By Michaela Guerra ; [facility], [facility] Meloxicam 15 MG Oral Tablet 10/11/2022 Provider: MARINA GAINES Diagnosis: Last Documented On 3 1:38PM By Michaela [facility], [facility] Medications Administered Includes: Administered Medications from this encounter No Administered Medications Recorded Results Includes: Results discussed during this encounter No Results Recorded For Specified Dates History of Present Illness Includes: History of Present Illness from this encounter No History of Present Illness Recorded Social History No Social History Recorded - Smoking Status Unknown Medical History Includes: Medical History addressed during this encounter No Medical History Recorded Family History Includes: Family History addressed during this encounter No Family History Recorded Review of Systems Includes: Review of Systems from this encounter No Review of Systems Recorded Mental Status Includes: Mental Status from this encounter No Mental Status Recorded Functional Status Includes: Functional Status from this encounter No Functional Status Recorded Physical Exam Includes: Physical Exam from this encounter No Physical Exam Recorded Allergies Includes: Active Allergies No Known Allergies Encounters Encounter Provider Location Date Check-In Time Check-Out Time Diagnosis Epidural Steroid Injection Sachin Monson CRNA 02/27/2023 4:15PM 11:59PM Insurance Includes: Active Insurance Policies Plan Name Member ID Group # Subscriber Relationship Effect martine Dates 1 - [facility] [id number] Wali Nieves Self 09/27/2020 - Unknown Clinical Notes Includes: Clinical Notes from this encounter No Clinical Notes Recorded
--- OUTSIDE RECORDS SUMMARY | 2025-02-20 07:53 | XMS_ITS ---
Care Plan - [facility], [facility] Created on: February 20, 2025 Wali Nieves : 1960 Sex: Male Author Organization [facility] , [facility] Address [address] [place] [address] Phone Care Team Providers Care Seismograph Operator Helper Name Role Phone Estephania Davila Unavailable [phone] MARINA DAVILA Primary Care Provider [phone] Adan Foy MD Unavailable [phone]
--- OUTSIDE RECORDS SUMMARY | 2025-02-20 07:53 | XMS_ITS | Clinical Summary ---
Author Organization [facility] , [facility] Address [address] [place] [address] Phone Care Team Providers Care Exercise Specialist Name Role Phone Estephania Davila Unavailable [phone] MARINA DAVILA Primary Care Provider [phone] aLw AU, Adan Guillaume Unavailable [phone] Reason for Visit and Chief Complaint The Chief Complaint is: back pain Problems Includes: Problems addressed during this encounter and other active Problems Current Visit Onset Date Resolved Date Provider Pebbles bella Status Lower Back Pain 11/11/2017 Adan Foy MD Act martine Last Documented On 8 10:43AM ; [facility] Plan of Treatment Patient was seen by myself Aditya Pettit PA-C. Patient will follow up 4 weeks after we try an epidural injection again at L4-5 I did explain to him that he may need to get a new MRI of his back his insurance company may require this. He would like to try to get this with the help of having the MRI approved but if they will not approve the injections without a new MRI he is willing to get that. - Last Documented On 02/10/2023 1:34PM ; [facility], [facility] Instructions to patient Lose weight Last Documented On 1:39PM ; [facility] Assessments Includes: Assessments from this encounter Findings - Overweight - Last Documented On 02/10/2023 1:34PM ; [facility] L4-L5 L5-S1 DDD foraminal stenosis - Last Documented On 02/10/2023 1:34PM ; [facility] L4-L5 L5-S1 DDD - Last Documented On 02/10/2023 1:34PM ; [facility], [facility] Instructions Includes: Instructions from this encounter Instructions to patient Lose weight Last Documented On 3 1:39PM ; [facility], [facility] Medical Equipment - Implanted Devices Includes: Current Devices No Medical Equipment Recorded Medications Includes: Medications discussed during this encounter and other current Medications Discontinued / Stopped on this date on 12/21/2019 Finasteride 5 MG Oral Tablet Provider: Diagnosis: Last Documented On 3 1:38PM By Michaela Guerra ; [facility], [facility] Doxazosin Mesylate 8 MG Oral Tablet Provi mckinley: Diagnosis: Last Documented On 3 1:38PM By Michaela Guerra ; [facility], [facility] Aspirin Adult Low Dose 81 MG Oral Tablet Delayed Relea se Provider: Diagnosis: Last Documented On 3 1:37PM By Michaela Guerra ; [facility], [facility] Meloxicam 15 MG Oral Tablet Provider: Diagnosis: Last Documented On 3 1:38PM By Michaela Guerra ; [facility], [facility] Montelukast Sodium Powder Provider: Diagnosis: Last Documented On 3 1:38PM By Michaela Guerra ; [facility], [facility] tiZANidine HCl 4 MG Oral Capsule Provider : Diagnosis: Last Documented On 3 1:38PM By Michaela Guerra ; [facility], [facility] traMADol HCl 50 MG Oral Tablet Provider: Diagnosis: Last Documented On 3 1:38PM By Michaela Guerra ; [facility], [facility] Current Medications (continue as prescribed) Doxazosin Mesylate 8 MG Oral Tablet 01/15/2023 Provi mckinley: MARINA DAVILA Diagnosis: Last Documented On 3 1:38PM By Michaela Guerra ; [facility], [facility] Montelukast Sodium 10 MG Oral Tablet 01/15/2023 Prov ider: MARINA DAVILA Diagnosis: Last Documented On 3 1:38PM By Michaela Guerra ; [facility], [facility] Finasteride 5 MG Oral Tablet 01/13/2023 Provider: MARINA DAVILA Diagnosis: Last Documented On 3 1:38PM By Michaela Guerra ; [facility], [facility] Meloxicam 15 MG Oral Tablet 10/11/2022 Provider: MARINA DAVILA Diagnosis: Last Documented On 3 1:38PM By Michaela Guerra ; [facility], [facility] Medications Administered Includes: Administered Medications from this encounter No Administered Medications Recorded Vital Signs Includes: Vital Signs from this encounter Vital Name 02/09/2023 01:39P Height (in) 70 Weight (lb) 225 Body Mass Index 32.3 Body Surface Area 2.2 Note: lc Last Documented: On 02/09/2023 1:39PM ; [facility], [facility] Results Includes: Results discussed during this encounter No Results Recorded For Specified Dates History of Present Illness Includes: History of Present Illness from this encounter MARILIA Nieves is a 62 year old male. - Allergy list reviewed - Problem list reviewed - Medication list reviewed Patient was last seen in the office in regards to his back for an epidural injection 2020 at L4-L5. His back been bothering him recently over the last few months he has been taking ibuprofen [id number] 3 in the morning and 3 in the evening. He complains of back and right leg pain that will counter radiate down the leg to the side of the foot. His previous injection lasted about 4 to 4-1/2 months and gave him 75 to 80% relief. He would like to try the injections again. No bowel or bladder issues with this no previous back surgery. Social History Description Last Updated Non-smoker 02/09/2023 Last Documented On 3 1:34PM ; [facility], [facility] Tobacco non-user 10/14/2022 Last Documented On 3 1:39PM ; [facility] Smoking status : Never smoker 11/11/2017 Last Documented On 3 1:39PM ; [facility] No caffeine use 11/11/2017 Last Documented On 3 1:39PM ; [facility] No recent change in diet 11/11/2017 Last Documented On 3 1:39PM ; [facility] Not a current smoker 11/11/2017 Last Documented On 3 1:39PM ; [facility], [facility] Not exercising regularly 11/11/2017 Last Documented On 3 1:39PM ; [facility], [facility] Not using alcohol 11/11/2017 Last Documented On 3 1:39PM ; [facility], [facility] Not using drugs 11/11/2017 Last Documented On 3 1:39PM ; [facility], [facility] Procedures and Surgical History Includes: Procedures from this encounter Procedures Code Diagnosis Performing Provider Service L ocation Service Date use of tobacco assessment performed 1000F Last Documented On 3 1:39PM ; [facility], [facility] review of medications documented 1160F Last Documented On 3 1:39PM ; [facility], [facility] Medical History Includes: Medical History addressed during this encounter No Medical History Recorded Family History Includes: Family History addressed during this encounter Description Last Updated Paternal history of family history of he art disease 11/11/2017 Last Documented On 3 1:39PM ; [facility], [facility] Review of Systems Includes: Review of Systems [...] Immunologic: No complaint of seasonal allergic reaction. no change Mental Status Includes: Mental Status from this encounter Description No anxiety Functional Status Includes: Functional Status from this encounter No Functional Status Recorded Physical Exam Includes: Physical Exam from this encounter Allergies Includes: Active Allergies No Known Allergies Encounters Encounter Provider Location Date Check-In Time Check-Out Time Diagnosis Follow Up Aditya Pettit PA-C [facility] 3 1:29PM 1:58PM Overweight Insurance Includes: Active Insurance Policies Plan Name Member ID Group # Subscriber Relationship Effect martine Dates 1 - [facility] [id number] Wali Nieves Self 09/27/2020 - Unknown Clinical Notes Includes: Clinical Notes from this encounter * Progress note Date Encounter Last Documented by 02/09/2023 Follow Up Last documented on 02/10/2023; 1:34 PM, Aditya Pettit PA-C; [facility], [facility] Active Problems & Conditions - Lower Back Pain Chief Complaint The Chief Complaint is: Back pain. Referred Here Referred by self. History of Present Illness Wali Neives is a 62 year old male. - Allergy list reviewed - Problem list reviewed - Medication list reviewed Patient was last seen in the office in regards to his back for an epidural injection 2020 at L4-L5. His back been bothering him recently over the last few months he has been taking ibuprofen [id number] 3 in the morning and 3 in the evening. He complains of back and right leg pain that will counter radiate down the leg to the side of the foot. His previous injection lasted about 4 to 4-1/2 months and gave him 75 to 80% relief. He would like to try the injections again. No bowel or bladder issues with this no previous back surgery. Current Medication - Doxazosin Mesylate 8 MG Oral Tablet 30 days, 0 refills - Finasteride 5 MG Oral Tablet 30 days, 0 refills - Meloxicam 15 MG Oral Tablet 30 days, 0 refills - Montelukast Sodium 10 MG Oral Tablet 30 days, 0 refills Social History Current diet: No recent change in diet. Caffeine use: No caffeine use. Tobacco use: Not a current smoker. Tobacco non-user and non-smoker. Smoking status: Never smoker. Alcohol: Not using [...] Immunologic: No complaint of seasonal allergic reaction. no change Physical Findings - Vitals taken 02/09/2023 01:39 pm lc Height 70 in Weight 225 lbs Body Mass Index 32.3 kg/m2 Body Surface Area 2.2 m2 Tests Two views lumbar spine February 09, 2023 shows degenerative changes with his back at L4-L5 and L5-S1 02/09/23 MRI lumbar spine shows foraminal stenosis at L4-5 L5-S1 more pronounced L4-5 This was from 2019 Assessment - Overweight L4-L5 L5-S1 DDD foraminal stenosis L4-L5 L5-S1 DDD Counseling/Education - Lose weight Plan Patient was seen by myself Aditya Pettit PA-C. Patient will follow up 4 weeks after we try an epidural injection again at L4-5 I did explain to him that he may need to get a new MRI of his back his insurance company may require this. He would like to try to get this with the help of having the MRI approved but if they will not approve the injections without a new MRI he is willing to get that. Notes This dictation was done with voice recognition software and may contain errors and omissions. Electronically signed [facility] Practice Management Use of tobacco assessment performed Review of medications documented. Care Team - Estephania Davila
--- OUTSIDE RECORDS SUMMARY | 2025-02-20 07:53 | XMS_ITS | Encounter Summary ---
Author Organization Healthcare Address [address] [place] [address] Care Team Providers Care Firmware Manager Name Role Phone Vivek Ram MD Primary Care Provider [phone] Reason for Referral * Consultation (Routine) - Authorized Specialty Diagnoses / Procedures Referred By Contac t Referred To Contact Cardiology Diagnoses Paroxysmal atrial fibrillation (CMS/HCC) Benny Rain PA [address] [place] [facility] [address] [id number] Phone: tel: fax: Referral ID Status Reason Start Date Expiration Date Visits Requested Visits Authorized [id number] Authorized Specialty Services Required 08/18/2026 1 1 Encounter Details Date Type Department Care Team (Late st Contact Info) Description 02/16/2025 Orders Only [facility] [place] [address] [phone] Linda Day RN [facility] - [facility] None Paroxysmal atrial fibrillation (CMS/HCC) (Primary Dx) Social History Tobacco Use Types Packs/Day Years Used Date Smoking Tobacco: Never Sex and Gender Information Value Date Recorded Sex Assigned at Not on file Legal Sex Male 6:06 PM EDT Gender Identity Not on file Sexual Orientation Not on file documented as of this encounter Plan of Treatment Upcoming Encounters Date Type Department Care Team (Late st Contact Info) Description 03/09/2025 10:40 AM EST Office Visit [facility] [address] [phone] Huseyin Ng MD [address] [place] [id number] Scheduled Referrals Name Type Priority Associated Diagnoses Order Schedule Ambulatory referral to Cardiac Electrophysiology Outpatient Referral Routine Paroxysmal atrial fibrillation (CMS/HCC) 1 Occurrences starting 02/16/2025 until 08/20/2026 documented as of this encounter Visit Diagnoses Diagnosis Paroxysmal atrial fibrillation (CMS/HCC)- Primary Atrial fibrillation documented in this encounter Care Teams Firmware Manager Relationship Specialty Start Date End Date Vivek Ram MD [address] [place] [address] PCP - General 08/09/20 documented as of this encounter
--- OUTSIDE RECORDS SUMMARY | 2025-02-20 07:53 | XMS_ITS | Clinical Summary ---
Author Organization [facility] , [facility] Address [address] [place] [address] Phone Care Team Providers Care Gang Hemstitching Machine Operator Name Role Phone Estephania Davila Unavailable [phone] MARINA DAVILA Primary Care Provider [phone] Law AU, Adan Guillaume Unavailable [phone] Reason for Visit and Chief Complaint The Chief Complaint is: back pain Problems Includes: Problems addressed during this encounter and other active Problems Current Visit Onset Date Resolved Date Provider Pebbles bella Status Lower Back Pain 11/11/2017 Adan Foy MD Act martine Last Documented On 8 10:43AM ; [facility], [facility] Plan of Treatment Patient was seen by myself Aditya Pettit PA-C. Patient will follow up as needed for now I do recommend stretching exercises that he says since he has been doing on his own think that is appropriate at these gets worse again he is to come back to see us and we will consider another epidural - Last Documented On 04/02/2023 8:50AM ; [facility], [facility] Instructions to patient Lose weight Last Documented On 8:43AM ; [facility], [facility] Assessments Includes: Assessments from this encounter Findings - Overweight - Last Documented On 04/02/2023 8:50AM ; [facility], [facility] L4-L5 L5-S1 DDD foraminal stenosis - Last Documented On 04/02/2023 8:50AM ; [facility], [facility] L4-L5 L5-S1 DDD - Last Documented On 04/02/2023 8:50AM ; [facility], [facility] Instructions Includes: Instructions from this encounter Instructions to patient Lose weight Last Documented On 4 8:43AM ; [facility], [facility] Medical Equipment - Implanted Devices Includes: Current Devices No Medical Equipment Recorded Medications Includes: Medications discussed during this encounter and other current Medications Current Medications (continue as prescribed) Doxazosin Mesylate 8 MG Oral Tablet 01/15/2023 Provi mckinley: MARINA MAINER Diagnosis: Last Documented On 3 1:38PM By Micheala Guerra ; [facility], [facility] Montelukast Sodium 10 MG Oral Tablet 01/15/2023 Prov ider: MARINA MAINER Diagnosis: Last Documented On 3 1:38PM By Michaela Guerra ; [facility], [facility] Finasteride 5 MG Oral Tablet 01/13/2023 Provider: MARINA DAVILA Diagnosis: Last Documented On 3 1:38PM By Michaela Guerra ; [facility], [facility] Meloxicam 15 MG Oral Tablet 10/11/2022 Provider: MARINA DAVILA Diagnosis: Last Documented On 3 1:38PM By Michaela Guerra ; [facility], [facility] Medications Administered Includes: Administered Medications from this encounter No Administered Medications Recorded Vital Signs Includes: Vital Signs from this encounter Vital Name 04/02/2023 08:43A Height (in) 70 Weight (lb) 220 Body Mass Index 31.6 Body Surface Area 2.2 Pain Level 2 Note: lc Last Documented: On 04/02/2023 8:43AM ; [facility], [facility] Results Includes: Results discussed during this encounter No Results Recorded For Specified Dates History of Present Illness Includes: History of Present Illness from this encounter MARILIA Nieves is a 62 year old male. - Allergy list reviewed - Problem list reviewed - Medication list reviewed Patient is here today for follow-up of his lumbar epidural at L4-L5 foraminal stenosis the injection was on 02/27/2023. He says it helped him but gave him gave him 85% relief. He says he rates his pain level 2/10 now he has not having pain radiating down the right leg. Social History Description Last Updated Non-smoker 02/09/2023 Last Documented On 4 8:43AM ; [facility] Tobacco non-user 10/14/2022 Last Documented On 4 8:43AM ; [facility] Smoking status : Never smoker 11/11/2017 Last Documented On 4 8:43AM ; [facility] No caffeine use 11/11/2017 Last Documented On 4 8:43AM ; [facility] No recent change in diet 11/11/2017 Last Documented On 4 8:43AM ; [facility] Not a current smoker 11/11/2017 Last Documented On 4 8:43AM ; [facility] Not exercising regularly 11/11/2017 Last Documented On 4 8:43AM ; [facility] Not using alcohol 11/11/2017 Last Documented On 4 8:43AM ; [facility] Not using drugs 11/11/2017 Last Documented On 4 8:43AM ; [facility] Procedures and Surgical History Includes: Procedures from this encounter Procedures Code Diagnosis Performing Provider Service L ocation Service Date use of tobacco assessment performed 1000F Last Documented On 4 8:43AM ; [facility] review of medications documented 1160F Last Documented On 4 8:43AM ; [facility] Medical History Includes: Medical History addressed during this encounter No Medical History Recorded Family History Includes: Family History addressed during this encounter Description Last Updated Paternal history of family history of he art disease 11/11/2017 Last Documented On 4 8:43AM ; [facility] Review of Systems Includes: Review of [...] Time Diagnosis Follow Up Aditya Pettit PA-C [facility] 4 8:40AM 8:52AM Overweight Insurance Includes: Active Insurance Policies Plan Name Member ID Group # Subscriber Relationship Effect martine Dates 1 - [facility] [id number] Wali Nieves Self 09/27/2020 - Unknown Clinical Notes Includes: Clinical Notes from this encounter * Progress note Date Encounter Last Documented by 04/02/2023 Follow Up Last documented on 04/02/2023; 8:50 AM, Aditya Pettit PA-C; [facility], [facility] Active Problems & Conditions - Lower Back Pain Chief Complaint The Chief Complaint is: Back pain. Referred Here Referred by self. History of Present Illness Wali Nieves is a 62 year old male. - Allergy list reviewed - Problem list reviewed - Medication list reviewed Patient is here today for follow-up of his lumbar epidural at L4-L5 foraminal stenosis the injection was on 02/27/2023. He says it helped him but gave him gave him 85% relief. He says he rates his pain level 2/10 now he has not having pain radiating down the right leg. Current Medication - Doxazosin Mesylate 8 MG [...] no change Physical Findings - Vitals taken 04/02/2023 08:43 am lc Height 70 in Weight 220 lbs Body Mass Index 31.6 kg/m2 Body Surface Area 2.2 m2 Pain Level 2 There is no skin site reaction to the previous injection He has 5/5 EHL gastrocs quadriceps tibialis anterior strength bilaterally negative straight leg raise bilaterally Tests Two views lumbar spine February 09, 2023 shows degenerative changes with his back at L4-L5 and L5-S1 02/09/23 MRI lumbar spine shows foraminal stenosis at L4-5 L5-S1 more pronounced L4-5 This was from 2019 Assessment - Overweight L4-L5 L5-S1 DDD foraminal stenosis L4-L5 L5-S1 DDD Previous Tests Available previous imaging studies were reviewed Available previous history reviewed Counseling/Education - Lose weight Plan Patient was seen by myself Aditya Pettit PA-C. Patient will follow up as needed for now I do recommend stretching exercises that he says since he has been doing on his own think that is appropriate at these gets worse again he is to come back to see us and we will consider another epidural Notes This dictation was done with voice recognition software and may contain errors and omissions. Electronically signed Aditya Pettit, PAC Practice Management Use of tobacco assessment performed Review of medications documented. Care Team - Estephania Davila
--- OUTSIDE RECORDS SUMMARY | 2025-02-20 07:54 | XMS_ITS | Clinical Summary ---
Author Organization [facility] , [facility] Address [address] [place] [address] Phone Care Team Providers Care Manager Hospitality Name Role Phone GiovanniMatheusEstephania Unavailable [phone] MARINA GAINES Primary Care Provider [phone] Law UA, Adan Guillaume Unavailable [phone] Reason for Visit and Chief Complaint Epidural Steroid Injection Problems Includes: Problems addressed during this encounter and other active Problems All Visits Onset Date Resolved Date Provider Condition S tatus Lower Back Pain 11/11/2017 Adan Foy MD Act martine Last Documented On 8 10:43AM ; [facility], [facility] Plan of Treatment No Plan of Treatment [...] On 3 1:38PM By Michaela Guerra ; [facility], [facility] Montelukast Sodium 10 MG Oral Tablet 01/15/2023 Prov ider: MARINA GAINES Diagnosis: Last Documented On 3 1:38PM By Michaela Guerra ; [facility], [facility] Finasteride 5 MG Oral Tablet 01/13/2023 Provider: MARINA GAINES Diagnosis: Last Documented On 3 1:38PM By Michaela Guerra ; [facility], [facility] Meloxicam 15 MG Oral Tablet 10/11/2022 Provider: MARINA GAINES Diagnosis: Last Documented On 3 1:38PM By Michaela Guerra ; [facility], [facility] Medications Administered Includes: Administered Medications from [...] Diagnosis Epidural Steroid Injection Sachin Monson CRNA [facility] 02/28/20 23 9:51AM 10:14AM Insurance Includes: Active Insurance Policies Plan Name Member ID Group # Subscriber Relationship Effect martine Dates 1 - [facility] [id number] Wali Nieves Self 09/27/2020 - Unknown Clinical Notes Includes: Clinical Notes from this encounter No Clinical Notes Recorded
--- OUTSIDE RECORDS SUMMARY | 2025-02-20 07:54 | XMS_ITS | Clinical Summary ---
Author Organization Healthcare Address [address] [place] [address] Care Team Providers Care Slat Basket Maker Helper Machine Name Role Phone Vivek Ram MD Primary Care Provider [phone] Encounters Date Type Department Care Team Description 02/16/2025 Orders Only [facility] [place] [address] [facility] [facility] [address] [place] [id number] Linda Day RN Paroxysmal atrial fibrillation (CMS/HCC) (Primary Dx) from Last 3 Months Family History Medical History Relation Name Comments Conversions - Other Mother Healthy adult Relation Name Status Comments Mother Social History Tobacco Use Types Packs/Day Years Used Date Smoking Tobacco: Never Sex and Gender Information Value Date Recorded Sex Assigned at Not on file Legal Sex Male 6:06 PM EDT Gender Identity Not on file Sexual Orientation Not on file Last Filed Vital Signs Vital Sign Reading Time Taken Comments Blood Pressure - - Pulse - - Temperature - - Respiratory Rate - - Oxygen Saturation - - Inhaled Oxygen Concentration - - Weight 104 kg (230 lb 0.1 oz) 12/04/2015 1:59 PM EDT Height 175.3 cm (5' 9 ) 12/04/2015 1:59 PM EDT Body Mass Index 33.97 12/04/2015 1:59 PM EDT Plan of Treatment Upcoming Encounters Date Type Department Care Team (Late st Contact Info) Description 03/09/2025 10:40 AM EST Office Visit [facility] [place] [address] [facility] [place] [id number] Huseyin Ng MD [address] [place] [address] Health Maintenance Due Date Last Done Comments [facility]-Depression Screening 1958 [facility]-Hepatitis C Screening 1958 [facility]-/Child/Adol SDOH Screenings 1958 [facility]- SDOH Screenings 1976 [facility]-Adult SDOH Screenings 1976 [facility]-DTaP,Tdap,and Td Vaccine s (1 - Tdap) 1977 CT Colonography 09/10/2003 Colonoscopy 09/10/2003 FIT-DNA 09/10/2003 FIT 09/10/2003 FOBT 09/10/2003 Sigmoidoscopy 09/10/2003 [facility]-Colorectal Cancer Screening 09/10/2003 [facility]-Pneumococcal Vaccine: 50 + Years (1 of 1 - PCV) 2008 [facility]-Zoster Vaccines (1 of 2) 2008 [id number] Vaccine (3 - season) 2024 04/17/2021, 03/17/2021 [facility]-Influenza Vaccine (#1) 2024 03/17/2021 [facility]-RSV Vaccine: 60+ Years o r (1 - 1-dose 75+ series) 2033 HPV Vaccines Aged Out No longer eligi ble based on patient's age to complete this topic [facility]-HIB Vaccines Aged Out No longer e ligible based on patient's age to complete this topic [facility]-Hepatitis A Vaccines Aged Out No longer eligible based on patient's age to complete this topic [facility]-IPV Vaccines Aged Out No longer e ligible based on patient's age to complete this topic [facility]-Rotavirus Vaccines Aged Out No lo nger eligible based on patient's age to complete this topic Care Teams Slat Basket Maker Helper Machine Relationship Specialty Start Date End Date Vivek Ram MD [facility] [address] [place] [address] PCP - General 08/09/20
--- NOTE | 2025-02-20 08:00 | CA_ITS ---
APPROVED REPORT EXAM: Limited 2D and color flow Echocardiogram Tax Collection Coordinator: Leela Nguyen RCS, RVS Ht: 5 ft 10 in Wt: 205lbs BSA: 2.11 BP: 128/74 mmHg Indications: Afib, Syncope, HTN, Ex-smoker, HLD 2D Dimensions IVSd 0.87 cm LVEF (Visual) 66.70 % PWd 1.28 cm LA Volume 69.30 mL LVDd 5.05 cm LA Volume Index 32.251132 mL/m2 (M/F) 16-34 LVDs 3.18 cm EF AP4 49.20 % Aortic Root 3.10 cm GL Strain -14.9 % Left Atrium 4.49 cm LVOT 2.15 cm (M/F) 1.5-2.5 M-Mode Dimensions LVDd 5.05 cm (3.5-5.7) Ao Diam 3.39 cm (2.0-3.7) LVDs 3.25 cm (3.5-5.7) IVSd 0.87 cm (0.6-1.1) PWd 1.28 cm (0.6-1.1) EF (Teich) 57.60% EPSs 0.69 cm FS 32.53% EDV (Teich) 100.30 mL ESV (Teich) 42.50 mL LV Diastology E Decel Time 217 (160-240 msec) E/A Ratio 1.25 Mitral Valve MV E Max Titi. 97.0 (40-130 cm/s) MV A Velocity 78.0 (40-130 cm/s) E/A Ratio 1.25 MV Decel. Time 217 (160-240 ms) Other Information Study Quality: Fair Conclusion This is a limited TTE to evaluate LV systolic function. Limited windows are obtained. The left ventricle is normal in size. There is increased LV wall thickness. There is low-normal global LV systolic function. LVEF is 50-55%. Compared to prior TTE from 05/10/2024, the LV systolic function has recovered and is now low-normal. Electronically signed by : Corrine Wills MD 02/23/2025 17:00:54
== END 2025-02-20 23:59 | disposition home or self-care (01) ==
PROVIDERS: PCP Nurse Practitioner Family; Visit Provider Physician Assistant
DX: I51.7 Cardiomegaly (principal); I48.0 Paroxysmal atrial fibrillation; R05.1 Acute cough; R55 Syncope and collapse; E78.5 Hyperlipidemia, unspecified; Z13.6 Encounter for screening for cardiovascular disorders; Z87.891 Personal history of nicotine dependence
CPT/HCPCS: 93308